=== PATIENT | female | born 1980 | race Caucasian/White ===

== ENCOUNTER 2016-06-07 05:25 | Day surgery (SDC) | payer BC ==
[2016-06-06 11:13] LABS: BASOPHILS 0.4 % (0.0-2.0); EOSINOPHILS 0.8 % (0-7); HEMATOCRIT 41.9 % (36.0-48.0); HEMOGLOBIN 14.3 g/dL (12-16); IMMATURE GRANULOCYTES 0.2 % (0-5); LYMPHOCYTES 34.4 % (15-50); MCH 30.6 pg (26.0-34.0); MCHC 34.1 g/dL (31.0-37.0); MCV 89.7 fL (80.0-100.0); MEAN PLATELET VOLUME 11.2 fL (7.4-10.4); MONOCYTES 5.9 % (2-11); NEUTROPHILS 58.3 % (40-80); PLATELET COUNT 255 10x3/uL (130-400); RBC 4.67 10x6/uL (4.00-5.40); RDW 12.9 % (11.5-14.5); WBC 8.4 10x3/uL (4.8-10.8)
[2016-06-06 11:21] LABS: CALC OSMOLALITY 276 mosm/kg (275-300); CALCIUM 9.2 mg/dL (8.5-10.1); CARBON DIOXIDE 22.6 mmol/L (21.0-32.0); CHLORIDE - SERUM 104 mmol/L (98-107); CREATININE - SERUM 0.8 mg/dL (0.6-1.3); GLUCOSE 92 mg/dL (74-106); POTASSIUM - SERUM 4.2 mmol/L (3.5-5.1); SODIUM 139 mmol/L (136-145); UREA NITROGEN 11 mg/dL (7-18); eGFR NON AFRICAN AMERICAN 85 mL/min (90-120)
[~2016-06-07] VITALS: Ht 160 cm; Wt 63.6 kg
[2016-06-07] VITALS (11 sets, daily range): BP systolic 98–127; BP diastolic 53–77; Ht 160 cm; Wt 63.6 kg
[~2016-06-07 05:25] MED LIST: BENTYL 20 MG TA20 MG PO; BUPROPION XL300 MG PO; CARAFATE1 G PO; CEFTIN500 MG; DIFLUCAN150 MG PO; ELMIRON100 MG PO; HYDROCODONE-APA1 TAB PO; MINOCIN50 MG PO; OMEPRAZOLE40 MG PO; PHENERGAN25 M1 PO
[2016-06-07 06:48] LABS: HCG URINE NEGATIVE (NEGATIVE)
--- NOTE | 2016-06-07 11:30 | NUR ---
RECEIVED TO ROOM 2213 AT THIS TIME. VITAL SIGNS STABLE AND PT ALERT AND ORIENTED. SCD'S OFF, BUT AVAILABLE AT THIS TIME. IV TO RIGHT HAND PATENT. 5 LAP SITE INCISIONS TO ABDOMEN WITH BANDAGES REMAIN C/D/I. ORIENTED PT TO CALL LIGHT AND ROOM. PROVIDED PT WITH MOUTH MOISTURIZING KIT, SHE IS TO REMAIN NPO. CALL LIGHT IN REACH, WITH SRX3. BED IN LOWEST POSITION WITH WHEELS LOCKED. WILL CONTINUE WITH PLAN OF CARE.
--- NOTE | 2016-06-07 12:10 | NUR ---
PRN BENADRYL ADMINISTERED FOR PRURITIS SECONDARY TO PAIN MEDICATION. STATES THAT MOST ALL PAIN MEDICATIONS CAUSE HER TO ITCH. REPRODUCTIVE ENDOCRINOLOGIST INITIATED PER ORDERS. IV TO RIGHT HAND REMAINS PATENT. SCD'S APPLIED TO BILATERAL LOWER EXTREMETIES. AT BEDSIDE. PROVIDED PT WITH INCENTIVE SPIROMETER AND INSTRUCTED SHE IS TO USE 10 TIMES AN HOUR WHILE AWAKE. PT VERBALIZED UNDERSTANDING. SPOUSE AT BEDSIDE. DENIES FURTHER NEEDS AT PRESENT TIME. WILL CONTINUE WITH PLAN OF CARE.
--- NOTE | 2016-06-07 16:06 | NUR ---
ORDER OBTAINED FOR PT TO SELF CATHETERIZE IF NEEDED FOR URINARY RETENTION D/T PT'S HISTORY OF INTERSTITIAL CYSTITIS. PROVIDED PT WITH SUPPLIES. DENIES FURTHER NEEDS. CLOTH BALE HEADER IN USE FOR PAIN CONTROL AND CALL LIGHT IN REACH. WILL CONTINUE WITH PLAN OF CARE.
--- NOTE | 2016-06-07 19:30 | NUR ---
PT RECEIVED SITTING UP IN BED, SPOUSE AT BEDSIDE. PT IS ALERT AND ORIENTED X4. BREATH SOUNDS CLEAR BILATERALLY. IV NOTED TO RIGHT HAND WITH NS @ 150. PT ABD TENDER. PT UP AD MAGGY, SCD'S CURRENTLY OFF AT THIS TIME D/T PT JUST RETURNING FROM RESTROOM. PT SELF CATH INTERMITTENTLY. DENIES PAIN OR NEEDS AT THIS TIME. PT NOTED TO BE NPO. CALL LIGHT IN PT REACH.
[2016-06-08 01:00] VITALS: BP 97/54
--- NOTE | 2016-06-08 03:00 | NUR ---
PT C/O ABD PAIN 08/18. BOLUS DOSE OF DILAUDID 0.4MG ADMINISTERED.
--- NOTE | 2016-06-08 04:07 | NUR ---
PATIENT IN BED AAOX4. RR EVEN AND UNLABORED. 0 S/S OF DISTRESS. DENIES NEEDS. SCD'S OFF. FAMILY AT BEDSIDE. CALL LIGHT WITHIN REACH.
[2016-06-08 05:51] LABS: BASOPHILS 0.1 % (0.0-2.0); EOSINOPHILS 0.1 % (0-7); HEMATOCRIT 36.8 % (36.0-48.0); IMMATURE GRANULOCYTES 0.2 % (0-5); LYMPHOCYTES 18.9 % (15-50); MCH 29.9 pg (26.0-34.0); MCHC 32.6 g/dL (31.0-37.0); MCV 91.5 fL (80.0-100.0); MEAN PLATELET VOLUME 10.6 fL (7.4-10.4); MONOCYTES 6.8 % (2-11); NEUTROPHILS 73.9 % (40-80); PLATELET COUNT 238 10x3/uL (130-400); RBC 4.02 10x6/uL (4.00-5.40)
[2016-06-08 05:54] LABS: WBC 13.2 10x3/uL (4.8-10.8)
[2016-06-08 06:16] LABS: CALC OSMOLALITY 275 mosm/kg (275-300); CARBON DIOXIDE 22.8 mmol/L (21.0-32.0); CHLORIDE - SERUM 106 mmol/L (98-107); CREATININE - SERUM 0.8 mg/dL (0.6-1.3); GLUCOSE 84 mg/dL (74-106); SODIUM 139 mmol/L (136-145); UREA NITROGEN 10 mg/dL (7-18); eGFR NON AFRICAN AMERICAN 85 mL/min (90-120)
[2016-06-08 06:48] VITALS: BP 91/53
--- NOTE | 2016-06-08 07:15 | NUR ---
REPORT RECEIVED FROM CEMENT CAR DUMPER NURSE. CALL LIGHT IN REACH.
[2016-06-08 07:54] VITALS: BP 111/65
--- NOTE | 2016-06-08 08:00 | NUR ---
PATIENT UP IN HALLWAY AMBULATING WITH NO PROBLEMS AT THIS TIME. IV INTACT.
--- NOTE | 2016-06-08 08:04 | NUR ---
AMBULATING IN HALLWAY ADLIB. TOLERATING WEL. REQUESTING IV BENADRYL.
--- NOTE | 2016-06-08 08:58 | NUR ---
ASSESSMENT COMPLETED. BENADRYL SIVP PER C/O ITCHING. SCDs OFF AT THIS TIME. CALL LIGHT IN REACH. WILL CONTINUE WITH PLAN OF CARE.
--- NOTE | 2016-06-08 10:30 | NUR ---
WALKING IN HALLWAY AGAIN. TOLERATING WELL.
--- NOTE | 2016-06-08 11:06 | NUR ---
TORADOL AND REGLAN IVP. NORCO PO. NOW AMBULATING IN HALLWAY.
[2016-06-08 11:33] VITALS: BP 122/79
--- NOTE | 2016-06-08 12:00 | NUR ---
STATES PAIN HAS DECREASED TO A 1.
--- NOTE | 2016-06-08 13:21 | OP ---
PATIENT NAME: TD SELLERS MEDICAL RECORD: [id number] :78 LOCATION:D.[facility] ADMISSION DATE: SURGEON: JONO LADD MD DATE OF OPERATION: 06/07/2016 PREOPERATIVE DIAGNOSES: 1. Recurrent gastroesophageal reflux disease after TIF procedure. 2. Hiatal hernia. POSTOPERATIVE DIAGNOSES: 1. Recurrent gastroesophageal reflux disease after TIF procedure. 2. Hiatal hernia. PROCEDURE: 1. Laparoscopic hiatal hernia repair with Marilou fundoplication. 2. Upper endoscopy. SURGEON: Jono Ladd MD REPORT OF PROCEDURE: The patient's abdomen was prepped and draped in sterile fashion. A Veress needle was inserted in the left upper quadrant and the abdomen was insufflated. An 11-mm Visiport trocar was inserted in the midline just above the umbilicus. Under direct visualization, I could see the Veress needle and saw there was no sign of any injury to bowel or surrounding structures. A 12-mm trocar was then placed in the left subcostal region. A 5-mm trocar was placed in the epigastrium, a 5-mm trocar was placed in the left lateral abdomen and a final 5-mm trocar was placed in the right lateral subcostal region. A liver retractor was inserted and the left lobe of the liver was elevated. The patient had a large esophageal hiatus with about 1/4 of the stomach projecting up into the chest. We began our dissection taking down the lesser omentum using the Harmonic scalpel. This dissection was continued up to the right side of the right franklin. We dissected this portion of the right franklin free and with tedious dissection, came through some of the inflammatory tissue going up into the patient's thoracic cavity. We went as far anteriorly and posteriorly as we could safely. We then went to the greater curvature of the stomach. In the upper third of the stomach, the short gastrics were taken down using the Harmonic scalpel. We continued this dissection around the fundus of the stomach up to the left side of the right franklin. The left side of the right franklin was then dissected free and again with tedious dissection, we dissected up into the patient's thoracic cavity and took down any adhesions, which were present. I could see evidence of the old TIF fasteners visible. We continued our dissection, freeing up the stomach until it would easily to lie into the patient's abdominal cavity. The TIF procedure fundoplication appeared to be intact and did not appear to be 270 degrees, but more of a 180-degree wrap. I performed an upper endoscopy and localized where the GE junction was present and could see that the wrap was still intact, but again was noted to be in about a 180-degree fashion. We then went back, laparoscopically and took down the TIF wrap. At this point, the stomach was lying in more an anatomical position. The esophageal hiatus was then reapproximated with interrupted 0 Polydek times 3. We then performed a 360-degree posterior wrap at the fundus of the stomach around the distal esophagus. This was done using interrupted 0 Polydek times 3 with the top and bottom suture incorporating a bite of the esophagus, there was a good intact wrap present. The patient had an OG tube in place and this was then removed easily. The abdomen was irrigated out thoroughly and care was taken to make sure there was no sign of any active bleeding or any sort of OPERATIVE REPORT [id number] TD SELLERS. At this point, the 11 and 12 mm trocar site fascia was closed with interrupted 0 Vicryls using a Vance-Nabor suture passer device. The ports and insufflation were then removed. The subcutaneous tissues were infused with a total of 20 mL of 0.25% Marcaine with epinephrine. The skin incisions were then closed with subcutaneous 5-0 Monocryl. COMPLICATIONS: None. CONDITION: Stable. ANESTHESIA: General endotracheal and local. BLOOD LOSS: 30 mL. TRANSINT:[id number] Voice Confirmation ID: [id number] DOCUMENT ID: [id number] JONO LADD MD at 1321 CC: SHOLA ZEE MD and MARCOS DAVIS MD [id number] DICTATION DATE: 06/07/16 1053 CONSTRUCTION SERVICES TECHNICIAN: 06/07/16 1305 [facility] [address] [id number]
[2016-06-08] MEDS ORDERED: REGLAN10 MG PO (14:09)
[2016-06-08] MEDS ORDERED: HYDROCODONE-APA1 TAB PO (14:09)
[2016-06-08] MEDS ORDERED: PHENERGAN25 M1 PO (14:09)
--- NOTE | 2016-06-08 14:20 | NUR ---
C/O ITCHING. BENADRYL [address] LADD IN ROOM TO SEE PATIENT.
--- NOTE | 2016-06-08 15:12 | NUR ---
IV DC'D WITH TIP INTACT PER STUDENT NURSE.
--- NOTE | 2016-06-08 15:32 | NUR ---
DC INSTRUCTIONS EXPLAINED TO PATIENT. RX FOR NORCO HANDED TO PATIENT. DC'D TO VEHICLE WITH FRIEND.
== END 2016-06-08 15:32 | disposition home or self-care (01) ==
LOC: D.OPS 05:25 → D.MS 05:25 → D.OPS 07:30 → D.PAN 07:30 → D.MS 08:44 → D.OPS 06-08 15:32
PROVIDERS: Surgery
DX: K21.9 Gastro-esophageal reflux disease without esophagitis (principal); K44.9 Diaphragmatic hernia without obstruction or gangrene

== ENCOUNTER → 2016-12-20 09:49 | Outpatient (CLI) | payer BC ==
[2016-06-07 12:26] VITALS: BMI 24.8
[~2016-12-20 09:49] MED LIST changes: +REGLAN10 MG PO
[2016-12-20 12:26] LABS: ERYTHROCYTE SEDIMENTATION RATE 2 mm/hr (0-20)
[2016-12-21 11:16] LABS: ANA REFLEX - DIRECT Negative (Negative)
[2016-12-24 17:10] LABS: ANCA - ANTIMYELOPEROXIDASE <9.0 U/mL (0.0-9.0); ANCA - ANTIPROTEINASE 3 <3.5 U/mL (0.0-3.5); ANCA - ATYPICAL <1:20 titer (Neg:<1:20); ANCA - CYTOPLASMIC <1:20 titer (Neg:<1:20); ANCA - PERINUCLEAR <1:20 titer (Neg:<1:20)
== END | disposition home or self-care (01) ==
LOC: D.LAB 09:49
PROVIDERS: Otolaryngology
DX: G90.01 Carotid sinus syncope (principal)

== ENCOUNTER 2017-09-25 05:00 | Day surgery (SDC) | payer BC ==
[2017-09-24 08:53] LABS: BASOPHILS 0.7 % (0-2); EOSINOPHILS 1.9 % (0-7); HEMATOCRIT 41.9 % (36.0-48.0); HEMOGLOBIN 14.1 g/dL (12-16); IMMATURE GRANULOCYTES 0.1 % (0-5); LYMPHOCYTES 43.3 % (15-50); MCH 31.8 pg (26.0-34.0); MCHC 33.7 g/dL (31.0-37.0); MCV 94.6 fL (80.0-100.0); MEAN PLATELET VOLUME 10.2 fL (7.4-10.4); MONOCYTES 7.6 % (2-11); NEUTROPHILS 46.4 % (40-80); PLATELET COUNT 264 10x3/uL (130-400); RBC 4.43 10x6/uL (4.00-5.40); RDW 13.4 % (11.5-14.5); WBC 6.7 10x3/uL (4.8-10.8)
[~2017-09-25] VITALS: Ht 160 cm; Wt 63.2 kg
--- NOTE | ~2017-09-25 | OP ---
PATIENT NAME: TD SELLERS MEDICAL RECORD: [id number] :78 LOCATION:D.OPS ADMISSION DATE: SURGEON: FILIBERTO VIRGEN MD DATE OF OPERATION: 09/25/2017 SURGEON: Filiberto Virgen MD ANESTHESIA: MAC by Richard Whyte CRNA DIAGNOSIS: Interstitial cystitis. PROCEDURES: Cystoscopy and intravesical Rimso instillation. FINDINGS: On cystoscopy, single ureteral orifices bilaterally and diffusely inflamed bladder. No bladder tumors seen. SPECIMENS: None. BLOOD LOSS: None. CLINICAL HISTORY: This is a 37-year-old female who has been diagnosed with interstitial cystitis. She currently has a urologist in [place]. The urologist in [place] is retiring. Thus, she is seeking another urologist. She has seen Dr. Lamar and Dr. Vega in the past, but they did not offer any definite treatments for interstitial cystitis. She is quite symptomatic with pelvic and flank pain. She also has dyspareunia, urinary frequency, urgency, and nocturia times 5-6. She has quite significant suprapubic pain and the pains flareup as well as her bladder symptoms flareup around her menstrual periods. She comes today to have cystoscopy to diagnose bladder inflammation by erythema of the bladder. If we do see inflammation, then we will proceed with treatment with intravesical Rimso, which is an antiinflammatory. SHE IS ALLERGIC TO CIPRO, MILK, AND GLUTEN. We gave her Ancef paper conservator to the OR. PROCEDURE: The patient was given IV sedation. She was placed in the dorsal lithotomy position and prepped and draped. A 21-English cystoscope with 30-degree lens was used for visualization. Findings are as outlined above. The bladder was then emptied through the scope sheath. Once the bladder was fully emptied, the scope sheath was removed. A red rubber catheter was inserted into the bladder and 50 mL of the Rimso solution was injected into the bladder. The ureteral catheter was then removed, leaving the solution in the bladder. The patient will hold the solution for a period of 15 minutes and then void it out. She will come to the office next week to have the second treatment given to her in the office. TRANSINT:[id number] Voice Confirmation ID: [id number] DOCUMENT ID: [id number] FILIBERTO VIRGEN MD at 1225 CC: [id number] DICTATION DATE: 09/25/17 1034 FLY WORKER: 09/25/17 1203 [facility] [address] [id number]
[2017-09-25 06:43] VITALS: BP 114/65; Ht 160 cm; Wt 63.2 kg
[2017-09-25 07:01] LABS: HCG URINE NEGATIVE (NEGATIVE)
== END 2017-09-25 12:10 | disposition home or self-care (01) ==
LOC: D.OPS 05:00
PROVIDERS: Anesthesiology; Urology
DX: N30.10 Interstitial cystitis (chronic) without hematuria (principal); Z01.812 Encounter for preprocedural laboratory examination

== ENCOUNTER → 2017-10-08 17:52 | Outpatient (CLI) | payer BC ==
[2017-09-25 06:43] VITALS: BMI 24.6
== END | disposition home or self-care (01) ==
LOC: D.LABREF 17:52
DX: N39.0 Urinary tract infection, site not specified (principal)

== ENCOUNTER → 2017-11-18 10:51 | Outpatient (CLI) | payer BC ==
[2017-09-25 06:43] VITALS: BMI 24.6
== END | disposition home or self-care (01) ==
LOC: D.LABREF 10:51
DX: D72.829 Elevated white blood cell count, unspecified (principal); R31.9 Hematuria, unspecified

== ENCOUNTER → 2018-03-20 11:53 | Outpatient (CLI) | payer BC ==
[2017-09-25 06:43] VITALS: BMI 24.6
[2018-03-23 19:08] LABS: AEROBE ID Preliminary report (()); RESULT 1 Gram negative rods (())
== END | disposition home or self-care (01) ==
LOC: D.LABREF 11:53
PROVIDERS: Urology
DX: R82.5 Elevated urine levels of drugs, medicaments and biological substances (principal); D72.829 Elevated white blood cell count, unspecified

== ENCOUNTER → 2018-04-04 20:16 | Outpatient (CLI) | payer BC ==
[2017-09-25 06:43] VITALS: BMI 24.6
== END | disposition home or self-care (01) ==
LOC: D.LABREF 20:16
DX: R82.5 Elevated urine levels of drugs, medicaments and biological substances (principal)

== ENCOUNTER 2018-04-17 05:28 | Day surgery (SDC) | payer BC ==
[~2018-04-17] VITALS: Ht 160 cm; Wt 61.2 kg
[2018-04-17 05:56] LABS: HEMATOCRIT 39.7 % (36.0-48.0); HEMOGLOBIN 13.6 g/dL (12-16); MCH 31.5 pg (26.0-34.0); MCHC 34.3 g/dL (31.0-37.0); MCV 91.9 fL (80.0-100.0); MEAN PLATELET VOLUME 10.6 fL (7.4-10.4); RBC 4.32 10x6/uL (4.00-5.40); RDW 12.6 % (11.5-14.5); WBC 7.9 10x3/uL (4.8-10.8)
[2018-04-17] MEDS ORDERED: CLEOCIN HCL300 MG PO (06:21)
[2018-04-17 06:26] VITALS: BP 104/63; Ht 160 cm; Wt 61.2 kg
[2018-04-17 06:43] LABS: HCG URINE NEGATIVE (NEGATIVE)
--- NOTE | 2018-04-17 08:10 | NUR ---
REC'D FROM SURGERY. DROWSY. RESPONDS TO VERBAL STIMULI. NO FAMILY AT BEDSIDE. ENCOURAGED PT TO TURN FROM SIDE TO SIDE UNTIL VOIDS. ENCOURAGED TO HOLD RIMSO MEDICATION LONG SHE CAN BUT FOR A MINIMUM OF 15 MINUTES
--- NOTE | 2018-04-17 08:25 | NUR ---
MUSTAPHA EL SERVED TO PT. GOING TO CALL HER DAUGHTER FOR TRANSPORTATION.
--- NOTE | 2018-04-17 08:40 | NUR ---
AMBULATED TO BATHROOM AND VOIDED WITHOUT DIFFICULTY, TOLERATED DIET.
--- NOTE | 2018-04-17 08:55 | NUR ---
WRITTEN AND VERBAL DC INST GIVEN TO PT. VERBALIZED UNDERSTANDING. IV DC'D WITH CATHETER INTACT. WAITING FOR TRANSPORTATION.
--- NOTE | 2018-04-17 09:10 | NUR ---
DC'D HOME WITH FAMILY VIA PRIVATE VEHICLE. TAKEN TO VEHICLE VIA WC. STABLE AT TIME OF DC.
--- NOTE | 2018-04-17 09:56 | OP ---
PATIENT NAME: TD SELLERS MEDICAL RECORD: [id number] :78 LOCATION:D.OPS ADMISSION DATE: SURGEON: FILIBERTO VIRGEN MD DATE OF OPERATION: 04/17/2018 SURGEON: Filiberto Virgen MD ANESTHESIA: TIVA by Ric Randolph. DIAGNOSIS: Interstitial cystitis. PROCEDURES: Cystoscopy, hydrodistention of the bladder to 500 mL, intravesical Rimso instillation. FINDINGS: Single ureteral orifices bilaterally, no bladder tumors. Diffuse bladder inflammation. BLOOD LOSS: None. CLINICAL HISTORY: This is a 38-year-old female with a history of interstitial cystitis. She did have a urinary tract infection with bacteria, which we treated with Bactrim. However, even after antibiotic treatment, she continued to have symptoms of pain, burning, dysuria, urinary frequency, and bladder spasms. She comes today to have treatment of the interstitial cystitis with intravesical Rimso instillation as well as hydrodistention. She is not allergic to any medications. We gave her Ancef youth corrections officer to the OR. DESCRIPTION OF PROCEDURE: The patient was given IV sedation. She was then placed in the dorsal lithotomy position. A 17-Cymraes cystoscope was used. The findings are as outlined above. The bladder was filled to about 500 mL and the volume was held in for about 1 minute. The bladder was then emptied completely through the cystoscope sheath. The sheath was then removed. We inserted a 14-Cymraes red rubber catheter into the bladder and through the catheter, we instilled 500 mL of the Rimso solution. The catheter was then removed, leaving the solution in the bladder. The patient will hold the solution in for 15 minutes and then void it out. She will be seen in followup in 2 weeks' time for Rimso #2. TRANSINT:[id number] Voice Confirmation ID: [id number] DOCUMENT ID: [id number] FILIBERTO VIRGEN MD at 0956 CC: [id number] DICTATION DATE: 04/17/18810 SUMMER NANNY: 04/17/18 0935 [facility] 04/17/18 [place] [address]
== END 2018-04-17 09:10 | disposition home or self-care (01) ==
LOC: D.OPS 05:28 → D.PAN 07:30 → D.OPS 07:30 → D.PAN 10:30 → D.OPS 10:30
PROVIDERS: Anesthesiology; Urology
DX: N30.10 Interstitial cystitis (chronic) without hematuria (principal); Z01.812 Encounter for preprocedural laboratory examination

== ENCOUNTER 2018-07-24 08:19 | Day surgery (SDC) | payer BC ==
[~2018-07-24] VITALS: Ht 162.6 cm; Wt 59.9 kg
[~2018-07-24 08:19] MED LIST changes: +CLEOCIN HCL300 MG PO
[2018-07-24 08:38] LABS: HEMATOCRIT 39.5 % (36.0-48.0); HEMOGLOBIN 13.5 g/dL (12-16); MCHC 34.2 g/dL (31.0-37.0); MCV 90.6 fL (80.0-100.0); MEAN PLATELET VOLUME 10.8 fL (7.4-10.4); RBC 4.36 10x6/uL (4.00-5.40); RDW 13.1 % (11.5-14.5); WBC 9.1 10x3/uL (4.8-10.8)
[2018-07-24 09:02] VITALS: BP 116/59; Ht 162.6 cm; Wt 59.9 kg
[2018-07-24 09:06] LABS: HCG URINE NEGATIVE (NEGATIVE)
--- NOTE | 2018-07-25 10:08 | OP ---
PATIENT NAME: TD SELLERS MEDICAL RECORD: [id number] :78 LOCATION:D.OPS ADMISSION DATE: SURGEON: FILIBERTO VIRGEN MD DATE OF OPERATION: 07/24/2018 SURGEON: Filiberto Virgen MD ANESTHESIA: TIVA by Zohaib Baptiste. DIAGNOSIS: Interstitial cystitis. PROCEDURES: Cystoscopy, hydrodistention of the bladder, intravesical Rimso instillation. FINDINGS: Diffusely inflamed bladder, no bladder tumors. BLOOD LOSS: None. CLINICAL HISTORY: This is a 38-year-old female, who has a history of interstitial cystitis. She has previously had a good response to intravesical Rimso. She now has another flare up and she would like to have treatment of cystoscopy, hydrodistention, and intravesical Rimso instillation. SHE IS ALLERGIC TO CIPRO. She was given Ancef institution librarian to the OR. DESCRIPTION OF PROCEDURE: The patient was given IV sedation. She was placed in lithotomy position and prepped and draped. We used a 17-Barbadian cystoscope with 30-degree lens for visualization. The bladder showed signs of diffuse inflammation. The bladder was distended to about 600 mL of capacity. The volume was held in the bladder for 1 minute. The bladder was then drained completely through the cystoscope sheath. We then inserted a red rubber catheter into the urethra and into the bladder. Through the lumen of the red rubber catheter, we injected 50 mL of intravesical Rimso solution. The catheter was then removed, leaving the solution in the bladder. The patient will hold the solution for 15 minutes and then void it out. TRANSINT:[id number] Voice Confirmation ID: [id number] DOCUMENT ID: [id number] FILIBERTO VIRGEN MD at 1008 CC: [id number] DICTATION DATE: 07/24/18 1033 FRAME BANDER: 07/24/18 1312 [facility] 07/24/[address] [id number] [place] [id number]
== END 2018-07-24 11:20 | disposition home or self-care (01) ==
LOC: D.OPS 08:19 → D.PAN 10:00 → D.OPS 11:00
PROVIDERS: Anesthesiology; ATTEND Urology
DX: N30.10 Interstitial cystitis (chronic) without hematuria (principal); Z88.1 Allergy status to other antibiotic agents; Z01.812 Encounter for preprocedural laboratory examination

== ENCOUNTER → 2018-10-02 18:11 | Outpatient (CLI) | payer BC ==
[2018-07-24 09:02] VITALS: BMI 22.7
== END | disposition home or self-care (01) ==
LOC: D.LABREF 18:11
PROVIDERS: ATTEND Urology
DX: R31.9 Hematuria, unspecified (principal)

== ENCOUNTER 2018-12-30 06:42 | Day surgery (SDC) | payer BC ==
[~2018-12-30] VITALS: Ht 160 cm; Wt 63.5 kg
[2018-12-30 07:16] LABS: HEMATOCRIT 40.5 % (36.0-48.0); HEMOGLOBIN 13.6 g/dL (12-16); MCH 31.6 pg (26.0-34.0); MCHC 33.6 g/dL (31.0-37.0); MEAN PLATELET VOLUME 10.3 fL (7.4-10.4); RBC 4.31 10x6/uL (4.00-5.40); RDW 12.8 % (11.5-14.5); WBC 8.8 10x3/uL (4.8-10.8)
[2018-12-30 08:04] VITALS: BP 113/68; Ht 160 cm; Wt 63.5 kg
[2018-12-30 08:17] LABS: HCG URINE NEGATIVE (NEGATIVE)
[2018-12-30 09:37] LABS: AMORPHOUS SEDIMENT <1+ /lpf (NONE SEEN); APPEARANCE HAZY (CLEAR); BACTERIA MODERATE /hpf (NEGATIVE); BILIRUBIN NEGATIVE (NEGATIVE); COLOR YELLOW (YELLOW); EPITHELIAL CELLS 0-5 /hpf (0-5); GLUCOSE NEGATIVE (NEGATIVE); KETONE NEGATIVE (NEGATIVE); MUCUS <1+ /lpf (NONE SEEN); NITRITE NEGATIVE (NEGATIVE); PROTEIN NEGATIVE (NEGATIVE); RED CELLS - URINE RARE /hpf (0-5); SPECIFIC GRAVITY 1.005 (1.005-1.020); UROBILINOGEN NORMAL (NORMAL); WHITE CELLS - URINE OCC /hpf (NEGATIVE)
[2018-12-30 09:38] LABS: CALCIUM OXALATE CRYSTALS 0-5 /hpf (NONE SEEN)
--- NOTE | 2018-12-30 11:08 | OP ---
PATIENT NAME: TD SELLERS MEDICAL RECORD: [id number] :78 LOCATION:D.OPS ADMISSION DATE: SURGEON: FILIBERTO VIRGEN MD DATE OF OPERATION: 12/30/2018 SURGEON: Filiberto Virgen MD ANESTHESIA: TIVA by Zohaib Baptiste CRNA DIAGNOSIS: Interstitial cystitis. PROCEDURES: Cystoscopy, hydrodistention of the bladder, intravesical Rimso instillation. FINDINGS: Diffusely inflamed bladder without any bladder tumors. Single ureteral orifices bilaterally. ESTIMATED BLOOD LOSS: None. SPECIMENS: None. CLINICAL HISTORY: This is a 38-year-old female, who has a history of interstitial cystitis. She has responded in the past to hydrodistention of the bladder and intravesical Rimso treatment. Her symptoms have flared up again. Urine cultures have shown no growth. She comes today to have the procedure done. SHE IS ALLERGIC TO CIPRO. She was given Ancef installation supervisor to the OR. DESCRIPTION OF PROCEDURE: The patient was given IV sedation. She was then placed into lithotomy position and prepped and draped. A 17-South African cystoscope with 30-degree lens was used for visualization. Findings are as outlined above. The bladder was hydrodistended with at least 600 mL normal saline, held in the bladder for 2 minutes. The bladder was then emptied through the cystoscope sheath and then the scope was removed. We inserted a 16-South African red rubber catheter into the bladder. Through the lumen of the catheter, we instilled 50 mL of intravesical Rimso solution. The catheter was then removed, leaving the solution in the bladder. The patient will hold the solution in for 15 minutes and then void it out. I will see her in followup in 2 weeks' time to check on her voiding symptoms. TRANSINT:[id number] Voice Confirmation ID: [id number] DOCUMENT ID: [id number] FILIBERTO VIRGEN MD at 1108 CC: [id number] DICTATION DATE: 12/30/18 1100 QUILL REAMER: 12/30/18 1106 [facility] [address] [id number]
== END 2018-12-30 11:55 | disposition home or self-care (01) ==
LOC: D.OPS 06:42 → D.PAN 09:30 → D.OPS 11:15
PROVIDERS: Anesthesiology; ATTEND Urology
DX: N30.10 Interstitial cystitis (chronic) without hematuria (principal)

== ENCOUNTER → 2019-01-13 07:55 | Outpatient (CLI) | payer BC ==
[2018-12-30 08:04] VITALS: BMI 24.8
== END | disposition home or self-care (01) ==
LOC: D.RAD 07:55
PROVIDERS: ATTEND Surgery
DX: R13.10 Dysphagia, unspecified (principal); Z98.890 Other specified postprocedural states

== ENCOUNTER 2019-07-16 07:33 | Day surgery (SDC) | payer BC ==
[~2019-07-16] VITALS: Ht 160 cm; Wt 63.0 kg
[2019-07-16 08:07] VITALS: BP 118/77; Ht 160 cm; Wt 63.0 kg
[2019-07-16] MEDS ORDERED: [UNRECOGNIZED DRUG - OTHER] (08:34)
[2019-07-16 08:43] LABS: HCG URINE NEGATIVE (NEGATIVE)
--- NOTE | 2019-07-16 11:34 | NUR ---
AMBULATED TO RESTROOM AND VOIDED WITHOUT COMPLICATIONS.VSS. DENIES PAIN. FULL LIQUID TRAY TO ROOM
--- NOTE | 2019-07-16 12:14 | OP ---
PATIENT NAME: TD SELLERS MEDICAL RECORD: [id number] :78 LOCATION:[facility] ADMISSION DATE: SURGEON: JOHN VIRGEN MD DATE OF OPERATION: 07/16/2019 SURGEON: John Virgen MD ANESTHESIA: TIVA by Ric Randolph CRNA. DIAGNOSIS: Interstitial cystitis. PROCEDURE: Cystoscopy, hydrodistention of the bladder, intravesical Rimso instillation. FINDINGS: Single ureteral orifices, diffusely inflamed bladder, no bladder tumors. ESTIMATED BLOOD LOSS: None. CLINICAL HISTORY: This is a 39-year-old female with a history of interstitial cystitis. She has recent flareup with severe pelvic pain, urinary urgency and frequency. Her urine culture showed no growth. She comes today to have the interstitial cystitis treated with hydrodistention and intravesical Rimso installation. SHE IS ALLERGIC TO CIPRO. She was given ampicillin and sulbactam 3 grams IV telecommunications project manager to the OR. DESCRIPTION OF PROCEDURE: The patient was given IV sedation. She was placed into lithotomy position and prepped and draped. The 21-Faroese cystoscope with 30-degree lens was used for visualization. Findings are as outlined above. The bladder was inflated to 500 mL with normal saline. The hydrodistention was maintained for about 2 minutes and then the bladder was emptied through the cystoscope sheath. The scope was removed. We used a 16-Faroese red rubber catheter to instill 50 mL of Rimso solution into the bladder. Once the solution was in the bladder, the catheter was removed, leaving the solution in the bladder. She will void this solution out after 15 minutes. I will see the patient in followup in 2 weeks' time in [place]. TRANSINT:[id number] Voice Confirmation ID: [id number] DOCUMENT ID: [id number] JOHN VIRGEN MD at 1214 CC: [id number] DICTATION DATE: 07/16/19 1102 SAND CARRIER: 07/16/19 1208 [address] [id number] [place] [address]
--- NOTE | 2019-07-16 13:45 | NUR ---
1230-AMBULATED WITH SLOW STEADY GAIT TO RESTROOM AND VOIDED WIHTOUT COMPLICATIONS.
--- NOTE | 2019-07-16 13:46 | NUR ---
1235-REMOVED IV WITH CATH INTACT,DISPOSED INTO SHARPS,COVERED WITH GUAZE,SECURED WITH MEDIPORE TAPE.
--- NOTE | 2019-07-16 13:47 | NUR ---
1236-REVIEWED POST OPERATIVE INSTRUCTIONS AND WILL CALL TO SCHEDULE FOLLOW UP. VERBALIZED UNDERSTANDING. VSS. DENIES PAIN.
--- NOTE | 2019-07-16 13:48 | NUR ---
1245-PT DRESSED AND DOWNSTAIRS. ESCORTED OUT VIA W/C WITH SPOUSE AWAITING TO DRIVE HOME. VERY PLEASANT
== END 2019-07-16 12:45 | disposition home or self-care (01) ==
LOC: D.PAN 07:33 → D.OPS 10:00 → D.PAN 10:00
PROVIDERS: ATTEND Urology
DX: N30.10 Interstitial cystitis (chronic) without hematuria (principal); K21.9 Gastro-esophageal reflux disease without esophagitis